=== PATIENT | female | born 1960 | race Caucasian/White ===

== ENCOUNTER 2020-11-27 10:28 | Emergency (ER) | payer BC, SELFPAY ==
[~2020-11-27] VITALS: Ht 157.5 cm; Wt 54.9 kg
[2020-11-27 10:30] VITALS: BP 141/80
--- NOTE | 2020-11-27 10:40 | NUR ---
60 y/o female from home c/o headache and cough x 1 day. Denies chest pain/sob. + covid contact in the home. RR even and unlabored. 5/10 aching pain to head. Denies n/v/d. VSS medhx: HTN, HLD
--- NOTE | 2020-11-27 11:13 | NUR ---
Covid swabs collected and walked to lab.
[2020-11-27 11:53] VITALS: BP 141/80
--- NOTE | 2020-11-27 11:53 | NUR ---
Patient discharged with v/s stable. Written and verbal after care instructions given and explained. Patient alert, oriented and verbalized understanding of instructions. Ambulatory with steady gait. All questions addressed prior to discharge. ID band removed. Patient advised to follow up with PMD. Rx of Prednisone 50mg given. Patient educated on indication of medication including possible reaction and side effects. Opportunity to ask questions provided and answered.
== END 2020-11-27 11:53 | disposition home or self-care (01) ==
LOC: MED 10:28
DX: R05 Cough (principal); R06.02 Shortness of breath; I10 Essential (primary) hypertension; E78.00 Pure hypercholesterolemia, unspecified; Z20.828 Contact with and (suspected) exposure to other viral communicable diseases
CPT/HCPCS: 87426; 99283; U0003